=== PATIENT | female | born 1980 | race Caucasian/White ===

== ENCOUNTER 2018-07-17 12:31 | Outpatient (CLI) | payer MEDICAID ==
--- NOTE | 2018-07-17 14:34 | MRI ---
LUMBAR SPINE MRI WITHOUT IV CONTRAST: History: 38-year-old female with history of low back pain and pain radiating down both legs. Technique: Multiplanar, multisequence MRI examination of the lumbar spine is performed. FINDINGS: There is a severe, approximately 1 cm anterolisthesis of L5 on S1. At L1-2, L2-3, L3-4, and L4-5 disc levels there is no significant disc desiccation changes. No focal herniation or significant canal or foraminal stenosis. At L5-S1 there is some minimal type I endplate changes and very mild marrow edema involving the infer ior L5 and superior S1 vertebral bodies. There is no significant central canal stenosis. There is mod erate bilateral foraminal stenosis. IMPRESSION: Marked anterolisthesis of L5 on S1. Mild type I endplate changes at L5-S1. Moderate bilateral foramin al stenosis without significant central canal stenosis at this level. The remainder of the lumbar spi ne study appears unremarkable without acute process. POS: [facility]
--- NOTE | 2018-07-17 14:37 | RAD ---
NEUTRAL FLEXION AND EXTENSION LATERAL IMAGING OF THE LUMBAR SPINE: Date: 07-17-18 Comparison: None. History: Low back pain, injury. FINDINGS: There is anterolisthesis at the L5-S1 level on the basis of bilateral L5 pars defects. Anterolisthesi s at L5-S1 measures 1.4 cm on neutral imaging, 1.5 cm with flexion and 1.5 cm with extension. Vertebr al body height and alignment is otherwise unremarkable within the lumbar spine. There is disc space n arrowing and sclerotic degenerative endplate change at the lumbosacral junction. IMPRESSION: Bilateral L5 pars defects with anterolisthesis of L5 on S1 as detailed above. POS: [facility]
== END 2018-07-17 12:32 | disposition home or self-care (01) ==
LOC: SCSMRI 12:31
PROVIDERS: ATTEND Nurse Practitioner Family
DX: M54.16 Radiculopathy, lumbar region (principal); M43.17 Spondylolisthesis, lumbosacral region; M99.83 Other biomechanical lesions of lumbar region
CPT/HCPCS: 72110; 72148

== ENCOUNTER 2018-07-19 16:08 | Emergency (ER) | payer MEDICAID, OTHER ==
[~2018-07-19 16:08] MED LIST: Iopamidol 370 76% 100 ML VIAL ONE
[2018-07-19 17:00] LABS: #Basophils 0.1 thou/uL (0.0-0.2); #Eosinphils 0.5 thou/uL (0.0-0.7); #Lymphocytes 2.6 thou/uL (1.20-3.40); #Monocytes 0.6 thou/uL (0.11-0.59); #Neutrophils 5.7 thou/uL (1.40-6.50); %Basophils 1.2 % (0.0-1.0); %Eosinophils 5.5 % (0.0-10.0); %Lymphocytes 27.2 % (21.0-51.0); %Monocytes 6.3 % (0.0-10.0); %Neutrophils 59.8 % (42.0-75.0); Hemoglobin 14.3 g/dL (12.0-16.0); Mean Corpuscular HGB CONC 33.1 g/dL (32.0-36.0); Mean Corpuscular Hemoglobin 28.2 pg (27.0-31.0); Mean Corpuscular Volume 85.3 fL (78.0-98.0); Mean Platelet Volume 7.7 fL (7.4-10.4); Platelet Count 312 thou/uL (130-400); RBC Distribution Width 11.1 % (11.5-14.5); Red Blood Cell (RBC) Count 5.07 mill/uL (4.20-5.40); White Blood Cell (WBC) Count 9.5 thou/uL (4.8-10.8)
[2018-07-19 17:05] LABS: PTT 32.2 SEC (22.9-36.1); Prothrombin Time 13.3 SEC (12.0-14.7)
[2018-07-19 17:12] LABS: ALT (SGPT) 47 U/L (8-55); AST (SGOT) 39 U/L (5-34); Albumin 4.3 g/dL (3.5-5.0); Alkaline Phosphatase 43 U/L (40-150); Anion Gap 14 mmol/L (10-20); BUN (Urea Nitrogen) 6 mg/dL (7.0-18.7); Bilirubin, Total 0.5 mg/dL (0.2-1.2); Calc. Creatinine Clearance 0 mL/min (70-130); Calcium 9.4 mg/dL (7.8-10.44); Carbon Dioxide 26 mmol/L (22-29); Chloride 101 mmol/L (98-107); Estimated GFR-MDRD 87; Globulin 3.1 g/dL (2.4-3.5); Glucose 116 mg/dL (70-105); Potassium 3.5 mmol/L (3.5-5.1); Protein, Total 7.4 g/dL (6.0-8.3); Sodium 137 mmol/L (136-145)
[2018-07-19 17:13] LABS: Pregnancy Test - Urine (BHCG) Negative (Negative); Pregu Control Background? CLEAR/WHITE (CLR/WHITE); Pregu Control Bar Appear? YES (CONTROL BAR)
[2018-07-19 17:14] LABS: Bilirubin Negative (Negative); Blood, Urine Trace (Negative); Clarity Clear (Clear); Glucose, Urine (Dipstick) Negative (Negative); Leukocyte Negative (Negative); Nitrite Negative (Negative); Protein, Urine (Dipstick) Negative (Neg-Trace); Urobilinogen 0.2 mg/dL (0.2-1.0)
[2018-07-19 17:15] LABS: CKMB 1.2 ng/mL (0-6.6); Troponin I Less than 0.010 ng/mL (< 0.028)
[2018-07-19 17:16] LABS: Bacteria/HPF 2+ HPF (None Seen); Yeast-All Forms Rare HPF (None Seen)
[2018-07-19 17:23] LABS: Amphetamine Not Detected (NotDetected); Barbiturates Screen Not Detected (NotDetected); Benzodiazepine Screen Not Detected (NotDetected); Cocaine Metabolite Screen Not Detected (NotDetected); Medtox Control Line Valid? VALID (VALID); Methadone Not Detected (NotDetected); Methamphetamine Not Detected (NotDetected); Opiate Screen Not Detected (NotDetected); Oxycodone Screen Not Detected (NotDetected); Phencyclidine (PCP) Not Detected (NotDetected); THC/Cannabinoid Screen Not Detected (NotDetected); Tricyclic Screen Not Detected (NotDetected)
--- NOTE | 2018-07-19 17:30 | CT ---
CT OF BRAIN PERFORMED WITHOUT CONTRAST ENHANCEMENT: 07/19/18 HISTORY: Arm numbness. This is done as a stroke alert. The ventricular and cisternal system is within normal limits. There is no signs of intracerebral hemo rrhage or extra-axial fluid collections. The mastoid air cells are clear. There is some minimal sphen oid, ethmoid, and maxillary sinus mucosal change. IMPRESSION: No acute intracranial abnormalities. Findings telephoned to Dr. Womack at 1708 hours. POS: [facility]
--- NOTE | 2018-07-19 17:52 | CT ---
CT ANGIO OF BRAIN PERFORMED WITH INTRAVENOUS CONTRAST ENHANCEMENT: 07/19/18 HISTORY: Headaches with double vision. Left sided numbness of left hand, left jaw and left lips. The left vertebral artery is slightly larger than the right. The basilar artery and posterior cerebra l arteries are normal in appearance. Anterior and middle cerebral arteries are normal in appearance. I do not see any signs of any stenosi s or any evidence for thrombus. No evidence for any type of aneurysm. IMPRESSION: Unremarkable CT angio of brain. POS: [facility]
[2018-07-19] MEDS ORDERED: diphenhydrAMINE 50 MG/ML VIAL ONE (17:57)
== END 2018-07-19 19:37 | disposition left against medical advice (07) ==
LOC: SCSER 16:08
DX: R51 Headache (principal)
CPT/HCPCS: 36416; 70450; 70496; 80053; 80306; 81003; 81015; 81025; 82553; 84484; 85025; 85610; 85730; 93005; 96361; 96365; 96375; J1200

== ENCOUNTER 2018-11-10 20:19 | Emergency (ER) | payer OTHER, SELFPAY | END 2018-11-10 20:49 | disposition home or self-care (01) | LOC: SCSER 20:19 | DX: M79.645 Pain in left finger(s) (principal) | CPT/HCPCS: 99283 ==

== ENCOUNTER 2019-04-03 16:13 | Emergency (ER) | payer MEDICAID, OTHER, SELFPAY ==
[2019-04-03] MEDS ORDERED: Ketorolac Tromethamine 30 MG/ML VIAL ONE (16:36)
[2019-04-03] MEDS ORDERED: Acetaminophen 500 MG TAB ONE (16:36)
[2019-04-03 16:56] LABS: BHCG - Serum Negative (NEGATIVE); Pregs Control Background? CLEAR/WHITE (CLR/WHITE); Pregs Control Bar Appear? YES (CONTROL BAR)
[2019-04-03] MEDS ORDERED: Multivit, Adult Inj 10 ML VIAL ONE (18:15)
== END 2019-04-03 17:52 | disposition home or self-care (01) ==
LOC: SCSER 16:13
DX: R51 Headache (principal)
CPT/HCPCS: 84703; 96361; 96374; J1885

== ENCOUNTER 2019-09-25 08:19 | Outpatient (CLI) | payer OTHER ==
--- NOTE | 2019-09-25 10:20 | ULT ---
PELVIC ULTRASOUND INCLUDING TRANSABDOMINAL AND TRANSVAGINAL AND VASCULAR DUPLEX WITH COLOR AND SPECTR AL DOPPLER IMAGING: Date: 09/25/19 HISTORY: Right lower quadrant pelvic pain. FINDINGS: Uterus measures 11.8 x 4.9 x 8.9 cm and is minimally enlarged. Endometrium is 1.5 cm. Right ovary measures 3.3 x 2.8 x 3.5 cm with a 2.3 x 2.4 cm cyst that probably has a small 1.0 cm cys t within the larger cyst. Left ovary measures 2.7 x 1.8 x 2.8 cm. No evidence for intrauterine mass. No evidence for solid ovarian mass or adnexal mass. No significant abnormal fluid collection. IMPRESSION: Small right-sided ovarian cyst. Evidence for some uterine enlargement without focal mass. No abnormal fluid collection. No evidence for ovarian torsion. POS: [facility]
== END 2019-09-25 08:20 | disposition home or self-care (01) ==
LOC: SCSULT 08:19
PROVIDERS: ATTEND Nurse Practitioner Family
DX: R10.11 Right upper quadrant pain (principal); N83.201 Unspecified ovarian cyst, right side; N85.2 Hypertrophy of uterus
CPT/HCPCS: 76856

== ENCOUNTER 2021-01-26 15:14 | Emergency (ER) | payer OTHER ==
[2021-01-26] MEDS ORDERED: Ibuprofen 200 MG TAB ONE (17:02)
== END 2021-01-26 17:40 | disposition home or self-care (01) ==
LOC: ERS 15:14
DX: M25.521 Pain in right elbow (principal); M25.531 Pain in right wrist

== ENCOUNTER 2021-03-30 10:45 | Outpatient (CLI) | payer OTHER | END 2021-03-30 10:46 | disposition home or self-care (01) | LOC: DTY/OP 10:45 | PROVIDERS: ATTEND Surgery | DX: E66.01 Morbid (severe) obesity due to excess calories (principal); Z68.41 Body mass index [BMI] 40.0-44.9, adult | CPT/HCPCS: 97802 ==

== ENCOUNTER 2021-04-07 08:20 | Outpatient (CLI) | payer OTHER ==
[2021-04-07 10:43] LABS: BHCG - Serum Negative (NEGATIVE); Pregs Control Background? CLEAR/WHITE (CLR/WHITE); Pregs Control Bar Appear? YES (CONTROL BAR)
[2021-04-07 10:54] LABS: Anion Gap 15 mmol/L (10-20); BUN (Urea Nitrogen) 14 mg/dL (7.0-18.7); Calc. Creatinine Clearance 0 mL/min (70-130); Calcium 10.4 mg/dL (7.8-10.44); Carbon Dioxide 22 mmol/L (22-29); Chloride 106 mmol/L (98-107); Glucose 140 mg/dL (70-105); Potassium 4.7 mmol/L (3.5-5.1); Sodium 138 mmol/L (136-145)
[2021-04-07 11:28] LABS: #Monocytes 0.9 10x3/uL (0.0-1.1); #Neutrophils 16.4 10x3/uL (1.5-8.4); %Basophils 0.2 % (0.0-2.0); %Lymphocytes 8.6 % (18.0-47.0); %Monocytes 4.5 % (0.0-10.0); %Neutrophils 85.9 % (40.0-75.0); Hemoglobin 14.2 g/dL (12.0-15.5); Mean Corpuscular HGB CONC 33.5 g/dL (32.0-36.0); Mean Corpuscular Hemoglobin 29.7 pg (27.0-33.0); Mean Corpuscular Volume 88.7 fl (81.6-98.3); Mean Platelet Volume 9.8 fl (7.4-10.4); Platelet Count 427 10x3/uL (150-450); RBC Distribution Width 12.7 % (11.5-14.5); Red Blood Cell (RBC) Count 4.78 10x6/uL (3.90-5.03); White Blood Cell (WBC) Count 19.1 10x3/uL (3.5-10.5)
[2021-04-07 22:22] LABS: SARS-CoV-2 PCR by NAA Not Detected (NotDetected)
== END 2021-04-07 08:21 | disposition home or self-care (01) ==
LOC: LABBT 08:20
PROVIDERS: ATTEND Surgery
DX: Z01.812 Encounter for preprocedural laboratory examination (principal); K43.2 Incisional hernia without obstruction or gangrene; Z20.822 Contact with and (suspected) exposure to COVID-19
CPT/HCPCS: 80048; 84703; 85025; U0003; U0005

== ENCOUNTER 2021-10-06 13:00 | Outpatient (CLI) | payer MEDICARE, MEDICAID ==
[2021-10-06 14:18] LABS: #Basophils 0.1 10x3/uL (0.0-0.2); #Eosinphils 0.7 10x3/uL (0.0-0.5); #Monocytes 0.7 10x3/uL (0.0-1.1); #Neutrophils 6.7 10x3/uL (1.5-8.4); %Basophils 0.5 % (0.0-2.0); %Eosinophils 6.2 % (0.0-6.0); %Lymphocytes 29.5 % (18.0-47.0); %Monocytes 5.7 % (0.0-10.0); %Neutrophils 57.8 % (40.0-75.0); Hemoglobin 13.7 g/dL (12.0-15.5); Mean Corpuscular HGB CONC 33.7 g/dL (32.0-36.0); Mean Corpuscular Hemoglobin 29.1 pg (27.0-33.0); Mean Corpuscular Volume 86.6 fl (81.6-98.3); Mean Platelet Volume 9.3 fl (7.4-10.4); Platelet Count 471 10x3/uL (150-450); White Blood Cell (WBC) Count 11.6 10x3/uL (3.5-10.5)
[2021-10-06 14:36] LABS: BHCG - Serum Negative (NEGATIVE); Pregs Control Background? CLEAR/WHITE (CLR/WHITE); Pregs Control Bar Appear? YES (CONTROL BAR)
[2021-10-06 14:49] LABS: ALT (SGPT) 55 U/L (8-55); AST (SGOT) 32 U/L (5-34); Albumin 4.3 g/dL (3.5-5.0); Alkaline Phosphatase 52 U/L (40-110); Anion Gap 12 mmol/L (10-20); BUN (Urea Nitrogen) 14 mg/dL (7.0-18.7); Bilirubin, Total 0.4 mg/dL (0.2-1.2); Calc. Creatinine Clearance 0 mL/min (70-130); Calcium 9.5 mg/dL (7.8-10.44); Carbon Dioxide 28 mmol/L (22-29); Chloride 104 mmol/L (98-107); Globulin 2.6 g/dL (2.4-3.5); Glucose 102 mg/dL (70-105); Protein, Total 6.9 g/dL (6.0-8.3); Sodium 140 mmol/L (136-145)
[2021-10-06 16:51] LABS: Hemoglobin A1c 5.4 % (4.0-6.0)
[2021-10-07 11:36] LABS: SARS-CoV-2 PCR by NAA Not Detected (NotDetected)
== END 2021-10-06 13:01 | disposition home or self-care (01) ==
LOC: LABBT 13:00
PROVIDERS: ATTEND Surgery
DX: Z01.818 Encounter for other preprocedural examination (principal); Z20.822 Contact with and (suspected) exposure to COVID-19; E78.00 Pure hypercholesterolemia, unspecified; Z68.41 Body mass index [BMI] 40.0-44.9, adult
CPT/HCPCS: 71046; 80053; 83036; 84703; 85025; 93005; U0003; U0005; 93010

== ENCOUNTER 2021-10-11 06:01 | Day surgery (SDC) | payer MEDICARE, MEDICAID ==
[2021-10-05 09:30] VITALS: BMI 41.8
[2021-10-11] MEDS ORDERED: Ketamine 50 MG/ML (10ML VIAL) ONE (06:58)
[2021-10-11] MEDS ORDERED: Fentanyl 250 MCG/5 ML VIAL ONE (06:58)
[2021-10-11] MEDS ORDERED: SUGAMMADEX SODIUM 200 MG/2 ML VIAL ONE (06:58)
[2021-10-11] MEDS ORDERED: Bupivacaine 0.25% 10 ML VIAL ONE (06:59)
[2021-10-11] MEDS ORDERED: Xylocaine 1% w/ Epi 1:100K 10 ML VIAL ONE (06:59)
[2021-10-11 08:16] LABS: SARS-CoV-2 NAA Rapid Test DETECTED (NotDetected)
== END 2021-10-11 07:20 | disposition home or self-care (01) ==
LOC: SDC 06:01
PROVIDERS: ATTEND Surgery
DX: U07.1 COVID-19 (principal); E66.01 Morbid (severe) obesity due to excess calories; K21.9 Gastro-esophageal reflux disease without esophagitis; G43.909 Migraine, unspecified, not intractable, without status migrainosus; E11.9 Type 2 diabetes mellitus without complications; E78.00 Pure hypercholesterolemia, unspecified; Z68.41 Body mass index [BMI] 40.0-44.9, adult; Z53.09 Procedure and treatment not carried out because of other contraindication; Z79.899 Other long term (current) drug therapy; Z88.8 Allergy status to other drugs, medicaments and biological substances
CPT/HCPCS: 0240U; J3010; S0020

== ENCOUNTER 2021-11-29 05:37 | Inpatient (IN) | payer MEDICARE, MEDICAID ==
[2021-11-23 11:23] VITALS: BMI 41.8
[2021-11-29] MEDS ORDERED: Lidocaine 1% MPF 2 ML VIAL ONE (06:10)
[2021-11-29] MEDS ORDERED: Fentanyl 250 MCG/5 ML VIAL ONE ×2 (06:56→10:37)
[2021-11-29] MEDS ORDERED: SUGAMMADEX SODIUM 200 MG/2 ML VIAL ONE (06:56)
[2021-11-29] MEDS ORDERED: Bupivacaine 0.25% HCL 30 ML VIAL ONE (07:05)
[2021-11-29] MEDS ORDERED: Xylocaine 1% w/ Epi 1:100K 10 ML VIAL ONE (07:05)
[2021-11-29] MEDS ORDERED: Heparin 5,000 UNITS/ML VIAL ONE (07:05)
[2021-11-29] MEDS ORDERED: Dexamethasone 20 MG/5 ML VIAL ONE (07:30)
[2021-11-29] MEDS ORDERED: ceFAZolin Sodium (SDC) 2 GM/100 ML BAG ONE (07:30)
[2021-11-29] MEDS ORDERED: Lidocaine 1% PF 5 ML VIAL ONE (07:30)
[2021-11-29] MEDS ORDERED: Ondansetron PF 4 MG/2 ML Vial ONE (07:30)
[2021-11-29] MEDS ORDERED: Rocuronium Bromide 10 MG/ML (10ML VIAL) ONE (07:30)
[2021-11-29] MEDS ORDERED: ePHEDrine 50 MG/ML VIAL ONE (07:30)
[2021-11-29] MEDS ORDERED: Ketorolac Tromethamine 30 MG/ML VIAL ONE (07:30)
[2021-11-29] MEDS ORDERED: PROPOFOL 200 MG/20 ML VIAL ONE (07:30)
[2021-11-29] MEDS ORDERED: Ondansetron HCl/PF 4 MG/2 ML Vial IVP PRN (08:31)
[2021-11-29] MEDS ORDERED: Promethazine HCl 25 MG/ML VIAL IVPB PRN (08:31)
[2021-11-29] MEDS ORDERED: Promethazine HCl 25 MG/ML VIAL IM PRN ×3 (08:31→11:31)
[2021-11-29] MEDS ORDERED: diphenhydrAMINE 50 MG/ML VIAL IVP PRN ×2 (09:44→11:31)
[2021-11-29] MEDS ORDERED: diphenhydrAMINE 25 MG CAP PO PRN (09:44)
[2021-11-29] MEDS ORDERED: Naloxone HCl 0.4 mg/ml Vial IV PRN (09:44)
[2021-11-29] MEDS ORDERED: Zolpidem Tartrate 5 MG TAB PO PRN (09:44)
[2021-11-29] MEDS ORDERED: Ondansetron PF 4 MG/2 ML Vial IVP PRN ×2 (09:44→11:31)
[2021-11-29] MEDS ORDERED: diphenhydrAMINE 50 MG/ML VIAL IM PRN (09:44)
[2021-11-29] MEDS ORDERED: fentaNYL Citrate/PF 2,000 MCG in Sodium Chloride 0.9% 60 ML IV PRN (09:44)
[2021-11-29] MEDS ORDERED: Communication Order-Pharmacy FS SCH (09:45)
[2021-11-29] MEDS ORDERED: Dextrose 5% in Water 1,000 ML IV PRN (11:31)
[2021-11-29] MEDS ORDERED: Dextrose 50% Abboject 50 ML SYRINGE SLOW IVP PRN (11:31)
[2021-11-29] MEDS ORDERED: hydrALAZINE 20 MG/ML VIAL SLOW IVP PRN (11:31)
[2021-11-29] MEDS: D5 1/2 NS w/20 mEq KCL 1,000 ML IV SCH ×2 (14:04→23:32)
[2021-11-29] MEDS ORDERED: Morphine 4 MG/ML VIAL SLOW IVP PRN (14:22)
[2021-11-29] MEDS: Morphine 4 MG/ML VIAL SLOW IVP PRN ×4 (14:52→21:49)
[2021-11-29] MEDS: Hydrocodone-Acetamin 15 ML UDCUP PO PRN ×2 (18:55→23:32)
[2021-11-30] MEDS: Morphine 4 MG/ML VIAL SLOW IVP PRN ×3 (02:15→09:38)
[2021-11-30] MEDS: Hydrocodone-Acetamin 15 ML UDCUP PO PRN ×3 (03:35→12:01)
[2021-11-30] MEDS: D5 1/2 NS w/20 mEq KCL 1,000 ML IV SCH ×2 (03:36→10:56)
[2021-11-30 05:46] LABS: #Eosinphils 0.5 thou/uL (0.0-0.7); #Lymphocytes 1.9 thou/uL (1.20-3.40); #Monocytes 1.2 thou/uL (0.11-0.59); #Neutrophils 14.7 thou/uL (1.40-6.50); %Basophils 0.2 % (0.0-1.0); %Eosinophils 2.6 % (0.0-10.0); %Lymphocytes 10.2 % (21.0-51.0); %Monocytes 6.4 % (0.0-10.0); %Neutrophils 80.7 % (42.0-75.0); Mean Corpuscular HGB CONC 33.3 g/dL (32.0-36.0); Mean Corpuscular Hemoglobin 30.7 pg (27.0-31.0); Mean Corpuscular Volume 92.3 fL (78.0-98.0); Mean Platelet Volume 6.9 fL (7.4-10.4); Platelet Count 293 thou/uL (130-400); RBC Distribution Width 11.7 % (11.5-14.5); Red Blood Cell (RBC) Count 3.91 mill/uL (4.20-5.40); White Blood Cell (WBC) Count 18.3 thou/uL (4.8-10.8)
[2021-11-30 06:03] LABS: Anion Gap 12 mmol/L (10-20); BUN (Urea Nitrogen) 10 mg/dL (7.0-18.7); Calc. Creatinine Clearance 193 mL/min (70-130); Calcium 8.2 mg/dL (7.8-10.44); Carbon Dioxide 24 mmol/L (22-29); Chloride 104 mmol/L (98-107); Glucose 128 mg/dL (70-105); Potassium 4.1 mmol/L (3.5-5.1); Sodium 136 mmol/L (136-145)
[2021-11-30] MEDS ORDERED: Pantoprazole 40 MG VIAL IVP SCH (09:00)
[2021-11-30] MEDS ORDERED: Enoxaparin Sodium 40 MG/0.4 ML SYRINGE SC SCH (09:00)
[2021-11-30 13:13] VITALS: BP 135/87; TEMP 98.2
== END 2021-11-30 14:15 | disposition home or self-care (01) | DRG 621 ==
LOC: SURG A 05:37
PROVIDERS: ADMIT Surgery; ATTEND Surgery
PROC: 0D164ZA Bypass Stomach to Jejunum, Percutaneous Endoscopic Approach (ICD-10-PCS; principal; 2021-11-29)
PROC: 8E0W4CZ Robotic Assisted Procedure of Trunk Region, Percutaneous Endoscopic Approach (ICD-10-PCS; 2021-11-29)
DX: E66.01 Morbid (severe) obesity due to excess calories (principal); Z68.41 Body mass index [BMI] 40.0-44.9, adult; K21.9 Gastro-esophageal reflux disease without esophagitis; G89.29 Other chronic pain; Z88.8 Allergy status to other drugs, medicaments and biological substances
CPT/HCPCS: 36415; 80048; 85025; C9113; J0690; J1100; J1644; J1650; J1885; J2270; J2405; J2704; J3010; J3480; J3490; S0020

== ENCOUNTER 2022-01-10 11:11 | Emergency (ER) | payer MEDICARE, MEDICAID | END 2022-01-10 12:40 | disposition home or self-care (01) | LOC: ERS 11:11 | DX: S05.12XA Contusion of eyeball and orbital tissues, left eye, initial encounter (principal); S90.01XA Contusion of right ankle, initial encounter; W19.XXXA Unspecified fall, initial encounter ==